=== PATIENT | female | born 1960 | race Caucasian/White ===

== ENCOUNTER → 2021-01-01 | Outpatient (CLI) | payer BC ==
[2021-01-01 11:45] LABS: BASO # 0.03 K/mm3 (0.02-0.10); HEMATOCRIT 42.6 % (37.0-47.0); LYMPH# 0.59 K/mm3 (1.50-4.00); MEAN CELL VOLUME 91 fl (78-100); MEAN CORPUSCULAR HEMOGLOBIN 30 pg (27-31); MEAN CORPUSCULAR HGB CONC 33 g/dL (33-37); MEAN PLATELET VOLUME 9.6 fl (7.4-10.4); NEU # 2.34 K/mm3 (1.40-6.50); PLATELET COUNT 193 K/mm3 (130-400); RED BLOOD COUNT 4.68 M/mm3 (4.10-5.30); RED CELL DISTRIBUTION WIDTH 12.9 % (11.5-14.5); WHITE BLOOD COUNT 3.3 K/mm3 (4.8-10.8)
[2021-01-01 12:28] LABS: POTASSIUM 3.9 mmol/L (3.5-5.1)
[2021-01-01 12:29] LABS: CALCIUM 9.3 mg/dL (8.3-10.5)
[2021-01-01 12:30] LABS: TOTAL PROTEIN 7.7 g/dL (6.2-8.1)
[2021-01-01 12:32] LABS: TOTAL BILIRUBIN 0.6 mg/dL (0.2-1.2)
[2021-01-01 12:37] LABS: MAGNESIUM 2.12 mg/dL (1.60-2.60)
== END ==
LOC: LAB 10:50
DX: C50.812 Malignant neoplasm of overlapping sites of left female breast (principal)